=== PATIENT | male | born 1950 | race Caucasian/White ===

== ENCOUNTER 2019-08-29 12:14 | Outpatient (CLI) | payer MEDICARE, OTHER ==
[2019-08-29 13:13] LABS: Estimated GFR-MDRD - POC Greater than 90
--- NOTE | 2019-08-29 16:17 | MRI ---
MR of the pelvis with and without IV contrast INDICATION: History of right leg weakness with right hip and right leg and right foot pain for 3 wale hs TECHNIQUE: Multiplanar multisequence MR images were obtained of the right hip and pelvis with and wit hout contrast utilizing 17 cc of MultiHance. COMPARISON: None FINDINGS: There is diffuse abnormal increased T2 signal intensity involving the right sartorius , right rectus femoris and vastus musculature of the anterior compartment of the right thigh. There is abnormal increased T2 signal intensity involving the visualized aspects of the right femoral nerve with mild e nhancement. There is some mild increased T2 signal intensity seen involving the right iliopsoas musculature. There is very mild increased T2 signal involving the right thigh adductor musculature in a obturator nerve distribution. No abnormal signal intensity is seen involving the superior or inferior gluteal nerve distribution. No enlarged lymph nodes are evident. No impinging mass is seen a long the right femoral nerve in the inguinal canal or along its course through the right iliopsoas. No impingement mass is seen along the course of the right obturator nerve. Visualized intrapelvic con tents are unremarkable appearing. There are are bilateral fat-containing inguinal hernias, left greater than right. There is susceptibility artifact within the right lower quadrant abdomen which ma y be postoperative in nature. There is some nonspecific increased T2 signal involving the lower right lumbar paraspinal musculature. IMPRESSION: Findings consistent with acute denervation changes of the right femoral nerve distribution and the ri ght obturator nerve distribution. There is also increased T2 signal involving the right lower lumbar paraspinal musculature. 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 Further evaluation with an MRI of the lumbar spine with and without contrast may be helpful for additional characterization. Findings discussed with Dr. Todd at 4:14 PM on August 29, 2019.
--- NOTE | 2019-08-29 16:20 | MRI ---
MRI brain with contrast: DATE: 08/29/2019 HISTORY: 68-year-old male with "brain mass ICD-10: G 93.9" Patient had noncontrast MRI of the brain recently at [facility], of which a portion of the repo rt was scanned into synapse PACS (the findings, but not the impression) COMPARISON: No prior images are available. TECHNIQUE: This was specifically ordered to be performed with contrast only. The ambulatory technologist followed the order, and did not performed any precontrast sequences. Following IV injection of 17 mL of MultiHance, T1 weighted post contrast axial, coronal, and sagittal slices, and postcontrast T2-weighted axial sequence, were performed. 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 However, there is an unusual feature of a vertically elongated, approximately 0.8 cm wide, column of T2 hyperintense ab normal intra-axial signal that surrounds these anomalous blood vessels. There is no patchy or nodular enhancement associated with this or anywhere else in the brain. There are mild to moderate chronic ischemic white matter changes in the cerebral white matter bilater ally. Questionable tiny old lacunar infarctions in the bilateral cerebellar hemispheres. No mass effect, midline shift, acute intra-axial hemorrhage, or extra-axial fluid collection. No obstructive hydrocephalus. Focus of magnetic susceptibility artifact from small or tiny ferromagnetic metallic foreign body in the left supraorbital anterior superficial soft tissues. IMPRESSION: 1. Unusual finding of a vertical column of T2 hyperintense signal lesion surrounding small anomalous blood vessels that have the appearance of a DVA in left paramedian upper frontal region. Uncertain whether this signal abnormality represents edema or gliosis. 2. Recommend serial follow-up MRIs of the brain with and without contrast, beginning in 3 months. 3. Incomplete evaluation. Only postcontrast images were performed. Precontrast images are not availab le.
== END 2019-08-29 12:15 | disposition home or self-care (01) ==
LOC: SCSMRI 12:14
PROVIDERS: ATTEND Neurological Surgery
DX: M54.16 Radiculopathy, lumbar region (principal); R29.898 Other symptoms and signs involving the musculoskeletal system; G93.89 Other specified disorders of brain; R90.89 Other abnormal findings on diagnostic imaging of central nervous system; R93.7 Abnormal findings on diagnostic imaging of other parts of musculoskeletal system
CPT/HCPCS: 70552; 72197; 82565